=== PATIENT | male | born 1950 | race Caucasian/White ===

== ENCOUNTER 2016-06-12 22:29 | Emergency (ER) | payer MEDICARE, BC ==
[2016-06-12 22:38] VITALS: BP 166/97
[2016-06-12] MEDS ORDERED: Diazepam 5 MG Tab ONE (23:18)
[2016-06-12] MEDS ORDERED: Diazepam 5 MG Tab PO ONE (23:18)
--- NOTE | 2016-06-12 23:22 | EDM.PDOC ---
ED HPI LOWER BACK PAIN/INJURY - General Chief Complaint: Back Pain or Injury Stated Complaint: BACK SPASMS Time Seen by Provider: 06/12/16 22:40 Source of Information: Reports: Patient History Limitations: Reports: No limitations - History of Present Illness INITIAL COMMENTS - FREE TEXT/NARRATIVE: lower right back pain, started 3 weeks ago. No injury. Attributes to poor work chair and hotel bed. Is working out of town 4-5 days per week. Was seen for same in [place] 2 weeks ago given Diazepam to use for spasm at [facility]. Is out of medication. Had been doing fine through weekend when at home , Worse again tonight. No radiation of pain. Using Mega back during the day as needed. - Related Data Allergies/ADRs: Allergies Allergy/AdvReac Type Severity Reaction Status Date / Time metformin Allergy Abdominal Verified 06/12/16 22:39 [From Kombiglyze XR] Cramps saxagliptin Allergy Abdominal Verified 06/12/16 22:39 [From Kombiglyze XR] Cramps Home Meds: Home Meds Aspirin [Halfprin] 81 mg PO ONETIME 06/12/16 [History] Ca Carbonate/Vitamin D3/Vit K [Calcium + D Soft Chewable Tab] 1 tab PO DAILY [History] Insulin Aspart [NovoLOG] 25 unit SQ TID 06/12/16 [History] Insulin Glarg,Human.Rec.Analog [Lantus] 40 units SQ DAILY 06/12/16 [History] Metoprolol Succinate 100 mg PO BID 06/12/16 [History] Moexipril [Univasc] 7.5 mg PO 06/12/16 [History] Vitamin B Complex [B Complex] 1 tab PO DAILY 06/12/16 [History] traZODone 50 mg PO BEDTIME 06/12/16 [History] Past Medical History HEENT History: Reports: Impaired vision Cardiovascular History: Reports: Arrhythmia, Hypertension Musculoskeletal History: Reports: Other (see below) Other Musculoskeletal History: broken right pinky Endocrine/Metabolic History: Reports: Diabetes, type II - Past Surgical History HEENT Surgical History: Reports: Tonsillectomy GI Surgical History: Reports: Appendectomy Musculoskeletal Surgical History: Reports: Other (see below) Other Musculoskeletal Surgeries/Procedures:: bone tumor cut out of LLE Social & Family History - Family History Family Medical History: Noncontributory - Tobacco Use Smoking Status *Q: Never Smoker - Caffeine Use Caffeine Use: Reports: Coffee - Recreational Drug Use Recreational Drug Use: No ED ROS GENERAL - Review of Systems Review Of Systems: See Below Constitutional: Reports: no symptoms HEENT: Reports: No symptoms Respiratory: Reports: No Symptoms GI/Abdominal: Reports: No symptoms : Reports: no symptoms Musculoskeletal: Reports: back pain Skin: Reports: no symptoms Neurological: Reports: No Symptoms ED EXAM,LOWER BACK PAIN/INJURY - Physical Exam Exam: See Below Exam Limited By: No limitations General Appearance: alert, mild distress Eye Exam: bilateral eye: EOMI, PERRL Ears: normal external exam Nose: normal inspection Throat/Mouth: Normal inspection Head: atraumatic, normocephalic Neck: normal inspection Respiratory/Chest: no respiratory distress, lungs clear Cardiovascular: normal peripheral pulses, regular rate, rhythm GI/Abdominal: normal bowel sounds Back Exam: normal inspection, full range of motion, muscle spasm, paraspinal tenderness (right upper sacrum) Extremities: normal inspection Neurological: alert, normal mood/affect Psychiatric: normal affect, normal mood Skin Exam: Warm, Dry, Intact Course - Vital Signs Last Recorded V/S: Last Vital Signs Temp 97.6 F 06/12/16 22:35 Pulse 60 06/12/16 22:35 Resp 18 06/12/16 22:35 BP 166/97 H 06/12/16 22:35 Pulse Ox 99 06/12/16 22:35 - Orders/Labs/Meds Meds: Medications Discontinued Medications Generic Name Dose Route Start Last Admin Trade Name Kirill PRN Reason Stop Dose Admin Diazepam Confirm 06/12/16 23:18 06/12/16 23:21 Valium. Administered 06/12/16 23:19 Not Given Dose 5 mg .ROUTE .STK-MED ONE Departure - Departure Time of Disposition: 23:20 Disposition: Home, Self-Care 01 Condition: good Clinical Impression: Spasm of back muscles Instructions: Back Pain, Adult, [id number] Referrals: Francisco Zuñiga MD [Primary Care Provider] - Forms: ED Department Discharge Additional Instructions: alternate heat and ice to low back diazepam 5mg 1/2 to one tablet at Bed as needed for back pain #6 may alternate tylenol and ibuprofen for discomfort If continued discomfort 2-3 days follow up with PCP
== END 2016-06-12 23:23 | disposition home or self-care (01) ==
LOC: DL.ED 22:29
DX: M62.830 Muscle spasm of back (principal); I10 Essential (primary) hypertension; E11.9 Type 2 diabetes mellitus without complications; Z98.890 Other specified postprocedural states; Z90.49 Acquired absence of other specified parts of digestive tract; Z79.82 Long term (current) use of aspirin; Z79.899 Other long term (current) drug therapy; Z79.4 Long term (current) use of insulin; Z88.8 Allergy status to other drugs, medicaments and biological substances
CPT/HCPCS: 99283; A9270-GY